=== PATIENT | male | born 1945 | race Caucasian/White ===

== ENCOUNTER → 2024-01-03 13:14 | Outpatient (REF) | payer MEDICARE, OTHER, SELFPAY | LOC: HWRAD 13:14 | PROVIDERS: ATTENDING PHYSICIAN Family Medicine | DX: R06.02 Shortness of breath (principal) | CPT/HCPCS: 71046 ==

== ENCOUNTER → 2024-01-05 07:48 | Outpatient (REF) | payer MEDICARE, OTHER, SELFPAY | LOC: DHCBC/DCA 07:48 | PROVIDERS: ATTENDING PHYSICIAN Internal Medicine Cardiovascular Disease; FAMILY PHYSICIAN Family Medicine | DX: R06.09 Other forms of dyspnea (principal); I25.10 Atherosclerotic heart disease of native coronary artery without angina pectoris; Z95.5 Presence of coronary angioplasty implant and graft; R06.02 Shortness of breath | CPT/HCPCS: 78452; 93017; A9500; J2785 ==

== ENCOUNTER 2024-01-18 06:03 | Day surgery (SDC) | payer MEDICARE, OTHER, SELFPAY ==
[2024-01-18] VITALS (11 sets, daily range): BP systolic 99–148; BP diastolic 69–90; BMI 28.0
[2024-01-18] MEDS: LOW STRENGTH ASPIRIN 81 MG PO (06:41)
[2024-01-18 06:48] LABS: Hematocrit 45.4 % (39.0-52.0); Hemoglobin 16.3 g/dL (13.0-18.0); Mean Corp Hgb Conc. 35.9 g/dL (33.0-37.0); Mean Corpuscular Hgb 32.4 pg (27.0-31.0); Mean Corpuscular Volume 90.3 fL (80.0-94.0); Mean Platelet Volume 10.6 fL (7.4-10.4); Platelet Count 245 10^3/uL (130-400); Red Blood Cell Count 5.03 10^6/uL (4.70-6.10); Red Cell Dist. Width 12.8 % (11.5-14.5); White Blood Cell Count 8.4 10^3/uL (4.8-10.8)
[2024-01-18 06:58] LABS: Blood Urea Nitrogen 17 mg/dl (9-20); Calcium 9.4 mg/dl (8.4-10.2); Carbon Dioxide 25 mmol/L (22-30); Chloride 102 mmol/L (98-107); Estimated Creatinine Clearance 60 ml/min; Glucose 142 mg/dl (70-99); Potassium 4.2 mmol/L (3.5-5.1); Sodium 141 mmol/L (135-145); eGFR > 60.00
--- NOTE | 2024-01-18 07:56 | ITS.CL.CATH ---
[facility] Director - Catheterization
Cardiac Catheterization
Procedure Report:
LEFT HEART CATHETERIZATION
Date of Procedure: January 18, 2024
Referring: Gene Huynh MD
PROCEDURES:
1. Left heart catheterization, coronary angiogram.
2. Ultrasound-guided access
INDICATION: Phililp is a 78-year-old gentleman with past medical history of hypertension, hyperlipidemia, coronary artery disease status post prior RCA PCI in 2020 who presents with 1 month history of exertional chest discomfort on 2 antianginal
medications and an abnormal stress test for a left heart catheterization to rule out obstructive CAD.
ACCESS: Right radial artery, 6 sheath, under ultrasound guidance
HEMODYNAMICS : (mmHg)
AO (s/d) : 145/90
LV (s/d) : 153/1
LVEDP : 17
CORONARY FINDINGS
DOMINANCE: Right
LEFT MAIN: The left main artery is a large-caliber vessel which gives rise to the left anterior descending artery and the left circumflex artery. There is minimal luminal irregularities
LEFT ANTERIOR DESCENDING: The left anterior descending artery is a medium to large caliber vessel which gives rise to 2 major diagonal branches as it courses to the anterior interventricular groove and wraps around the apex. There is a stable 80%
stenosis in the distal LAD towards the apex before it wraps around where it is small in caliber.
CIRCUMFLEX: The left circumflex artery is a medium caliber, nondominant vessel which gives off to a large caliber branching obtuse marginal branch. There is minimal luminal irregularities.
RIGHT CORONARY ARTERY: The right coronary artery has a anterior takeoff and is otherwise a large-caliber, dominant vessel which gives rise to the right posterior descending artery and the right posterolateral system. There is 50% focal in-stent
restenosis in the mid RCA which was IFR negative at 0.98. The posterolateral branch has very distal disease where it is very small in caliber.
HEMODYNAMIC ASSESSMENT OF THE MID RCA WITH A [employer] OMNI WIRE: The origin of the right coronary artery was cannulated with a 6 Fr AL 0.75 guide catheter. Intravenous heparin was administered and the ACT was followed during the procedure. Two
hundred micrograms of intracoronary nitroglycerin was given through the guide catheter. A [employer] Omni wire was advanced to the guide catheter tip and normalized just outside the guide catheter. The Omni wire was then carefully manipulated across
the stenosis in the mid RCA with the iFR above the ischemic threshold serially measuring 0.99, 0.98, 0.98. The Omni wire was then pulled back to the guide catheter where the Pd/Pa measured 1.0 confirming no baseline drift in pressure readings
SEDATION: 42 minutes of procedural sedation was utilized. An independent medical assistant dermatology was present to assist with and help manage the patient's level of consciousness and physiologic status.
RADIATION SUMMARY: Fluoro Time (min): 5 point, Dose (mGy): 425.6, DAP (Gy.cm2) : 25.5
Closure Device: Vascular band over right radial artery, 10 cc of air.
CONCLUSIONS
1. No obstructive coronary artery disease.
2. IFR -50% mid RCA in-stent restenosis.
3. Mildly elevated LVEDP at 17 mmHg.
RECOMMENDATIONS
1. Optimization of antianginal therapy. Of note patient tells us that he had significant leg cramps with 40 mg of Lipitor and therefore has been placed on 20 mg of daily Lipitor. He also only tolerated the Imdur for about 9 days and could not
tolerate the headaches related to this and therefore discontinued this. Currently he is only on Toprol XL 25 mg daily and therefore we will attempt adding low-dose amlodipine.
2. Aggressive management of cardiovascular risk factors.
3. Wean radial band per protocol.
4. Outpatient referral for cardiac rehab.
Copy to: Gene Huynh MD
Esme Young MD, [facility], [facility]
[2024-01-18 08:29] LABS: ACT-LR - POC 258 Seconds (116-155)
[2024-01-18] MEDS: NSS 500 IV (12:11)
== END 2024-01-18 13:00 | disposition home or self-care (01) ==
LOC: CATH 06:03
PROVIDERS: ATTENDING PHYSICIAN Internal Medicine Interventional Cardiology; FAMILY PHYSICIAN Family Medicine; OTHER PHYSICIAN Internal Medicine Cardiovascular Disease
DX: I25.10 Atherosclerotic heart disease of native coronary artery without angina pectoris (principal); Z95.5 Presence of coronary angioplasty implant and graft; E78.5 Hyperlipidemia, unspecified; I10 Essential (primary) hypertension; R94.39 Abnormal result of other cardiovascular function study; T82.855A Stenosis of coronary artery stent, initial encounter; Y83.2 Surgical operation with anastomosis, bypass or graft as the cause of abnormal reaction of the patient, or of later complication, without mention of misadventure at the time of the procedure; Z79.82 Long term (current) use of aspirin; Z79.899 Other long term (current) drug therapy
CPT/HCPCS: 99152; 99153; 93799; 80048; 85027; 85347; 93458; C1769; C1887; C1894; Q9967

== ENCOUNTER → 2024-03-15 09:05 | Outpatient (REF) | payer MEDICARE, OTHER, SELFPAY | LOC: HWRCS 09:05 | PROVIDERS: ATTENDING PHYSICIAN Nurse Practitioner; FAMILY PHYSICIAN Family Medicine | DX: R07.89 Other chest pain (principal) | CPT/HCPCS: 93306 ==

== ENCOUNTER 2024-03-22 02:23 | Emergency (ER) | payer MEDICARE, OTHER, SELFPAY ==
[2024-03-22 02:26] VITALS: BP 115/67
[2024-03-22 02:51] LABS: % Eosinophils 2.7 % (0-6); % Immature Granulocytes 0.4 % (0-0.5); % Lymphocytes 33.7 % (20.5-51.1); % Neutrophils 49.2 % (42.2-75.2); Absolute Basophils 0.1 10^3/uL (0-0.2); Absolute Eosinophils 0.2 10^3/uL (0-0.7); Absolute Lymphocytes 2.7 10^3/uL (1.2-3.4); Absolute Monocytes 1.1 10^3/uL (0.1-0.6); Hematocrit 41.9 % (39.0-52.0); Hemoglobin 15.2 g/dL (13.0-18.0); Mean Corp Hgb Conc. 36.3 g/dL (33.0-37.0); Mean Corpuscular Hgb 31.7 pg (27.0-31.0); Mean Corpuscular Volume 87.5 fL (80.0-94.0); Mean Platelet Volume 10.3 fL (7.4-10.4); Nucleated Red Blood Cells % 0 % (-); Platelet Count 243 10^3/uL (130-400); Red Blood Cell Count 4.79 10^6/uL (4.70-6.10); Red Cell Dist. Width 12.2 % (11.5-14.5); White Blood Cell Count 8.1 10^3/uL (4.8-10.8)
[2024-03-22 03:00] VITALS: BP 102/68
[2024-03-22 03:13] LABS: ALT (SGPT) 34 U/L (0-50); AST (SGOT) 34 U/L (17-59); Albumin 4.2 g/dl (3.5-5.0); Alkaline Phosphatase 85 U/L (38-126); Blood Urea Nitrogen 11 mg/dl (9-20); Calcium 8.9 mg/dl (8.4-10.2); Carbon Dioxide 23 mmol/L (22-30); Chloride 101 mmol/L (98-107); Estimated Creatinine Clearance 69 ml/min; Glucose 159 mg/dl (70-99); Sodium 135 mmol/L (135-145); Total Bilirubin 1.4 mg/dl (0.2-1.3); Total Protein 6.6 g/dl (6.3-8.2); eGFR > 60.00
[2024-03-22 03:27] LABS: Troponin I < 0.012 ng/ml
[2024-03-22 03:54] LABS: NT-proBNP < 20.0 pg/ml
[2024-03-22 04:00] VITALS: BP 107/67
[2024-03-22] MEDS: MAALOX 50 PO (04:30)
[2024-03-22 05:00] VITALS: BP 93/54
--- NOTE | 2024-03-22 05:07 | ED.GENMED ---
History of Present Illness
General
Chief Complaint: Chest Pain
Source: patient and previous hospital records (Cardiac catheterization January 2024 for evaluation of persistent chest pain. No obstructive CAD noted.)
Exam Limitations: none
Time Seen by Provider: 03/22/24 03:07
Nursing documentation reviewed up to this point in time: agreed with
History of Present Illness
History of Present Illness:
This is a 78-year-old gentleman who has history of hypertension, hyperlipidemia, CAD status post PTCA with stent to the RCA 2020. He notes chronic/frequent substernal chest pain, chronic dyspnea on exertion.
Follows with Dr. Huynh and underwent cardiac catheterization January 2024 that showed no obstructive coronary artery disease. There was note of a 50% focal in-stent restenosis of the mid RCA that was IFR negative.
Recommended optimization of antianginal therapy. Unfortunately patient intolerant to Imdur causing significant headaches. Intolerant to higher doses of Lipitor due to leg cramps, has been tolerating Lipitor 20 mg daily.
He is chronically maintained on Toprol XL 25 mg daily and amlodipine has been successfully added.
There was note of recommendation for outpatient cardiac rehab which patient has not initiated and admits that he had attempted to exercise at his local gym but notes significant dyspnea on exertion with any physical activity.
He had a routine follow-up with his bilingual patient support caseworker, Dr. Martinez yesterday morning and was feeling well. Upon returning home he had breakfast and then sat on the couch and then developed generalized upper chest pain that has persisted since 11 AM
yesterday. He did take a dose of Tylenol without relief.
He has had brief mild nausea but no vomiting, no back pain no neck pain, no palpitations, no dizziness or lightheadedness, no cough nor fever. He has had some mild shortness of breath, dyspnea on exertion most noted when he goes up or down steps.
No leg pain or swelling.
He arrives via EMS. He was given 2 sublingual nitroglycerin prehospital with no relief of pain. He took aspirin 325 mg at home.
Past History
Past History
ED Past Medical History: CAD, Cancer (Bladder), HTN, Hypercholesterolemia, DE (Non-STEMI April 2020) and Other (Diverticulitis, choledocholithiasis, Renal calculus, Bilirubin elevation chronic)
ED Past Surgical History: Cardiac (PTCA with stent right coronary artery April 2020), Cholecystectomy (Over 40 years ago), Orthopedic (Laminectomy 1979) and Urological (Bladder tumor removal 2016)
Social History
Tobacco: Former smoker
Alcohol: None
Personal:
Living: with family
Employment: Retired
Family History
Family History: CAD
Phy Exam
Physical Exam
Physical Exam:
GENERAL: 78-year-old gentleman appears his stated age, awake and alert, pleasant, appears in no acute distress.
EYE: anicteric
NECK: Supple, nontender, no meningismus, no significant adenopathy. No JVD.
ENT: oral mucosa is moist. No rhinorrhea.
CARDIAC: Regular rate and rhythm. no murmur. No rub. No palpable chest wall tenderness.
LUNGS: Clear breath sounds bilaterally, no acute respiratory distress, no wheezes/rales/rhonchi
ABDOMEN: Soft, nondistended, without focal tenderness, no r/g, no cvat. normoactive BS.
NEUROLOGICAL: Alert and oriented x3, no focal neuro deficits.
SKIN: Warm and dry, normal color, skin intact. No rash.
MUSCULOSKELETAL: No C/C/E. peripheral pulses are full and equal b/l. No palpable tenderness.
PSYCH: Normal and appropriate interaction.
Scores
Heart Score for Chest Pain Patients
STEMI patient?: No
History: Slightly or Non-Suspicious
ECG: Normal
Age: >/= 65 years
Risk Factors: >/= 3 Risk Factors or History of CAD
Troponin: </= Normal Limit
Heart Score for Chest Pain Patients: 4
Heart Score Risk: 20.3% MACE over next 6 weeks
Course
Orders/Labs/Results
Orders:
Orders
03/22/24 02:25
Electrocardiogram (*1) Urgent
Reason for Study: Chest Pain
Cardiac Monitoring- Treatment ONCE
EKG- Treatment ONCE
IV Insert/Care/Rem.- Treatment PRN
O2 Therapy [RESP] Urgent
Titrate/Wean O2 to maintain O2 sat greater than (%): 90
Special Instructions: Maintain sats >/=90%
Pulse Ox/spot Check [RESP] Urgent
Quantity: 1
Special Instructions: ON ROOM AIR
03/22/24 02:33
Comprehensive Metabolic Panel Urgent
NT-proBNP Urgent
Comment: ADD ON
Troponin I Urgent
03/22/24 02:34
Complete Blood Count/With Diff Urgent
03/22/24 03:18
Add On- LAB Urgent
Tests Added?: BNP
CR Chest - 2 Views Urgent
Comment:
Reason For Exam: upper chest pain x 1 day
03/22/24 03:55
Mag Hydrox/Al Hydrox/Simeth [Maalox] 30 ml Phenobarb/Hyoscy/Atropine/Scop [] 10 ml Viscous Lidocaine 2% [Xylocaine Viscous Cup] 10 ml PO NOW
03/22/24 04:15
Mag Hydrox/Al Hydrox/Simeth [Maalox] 30 ml .ROUTE .STK-MED ONE
Phenobarb/Hyoscy/Atropine/Scop [] 10 ml .ROUTE .STK-MED ONE
Viscous Lidocaine 2% [Xylocaine Viscous Cup] 15 ml .ROUTE .STK-MED ONE
03/22/24 05:11
Ketorolac [Toradol] 15 mg IV NOW STA
03/22/24 05:20
Troponin I Urgent
Abnormal Lab Results
03/22/24 03/22/24
02:33 02:34
MCH 31.7 H pg
(27.0-31.0)
Absolute Monos (auto) 1.1 H 10^3/uL
(0.1-0.6)
Monocytes % 13.0 H %
(1.7-9.3)
Glucose 159 H mg/dl
(70-99)
Total Bilirubin 1.4 H mg/dl
(0.2-1.3)
03/22/24 02:34
03/22/24 02:33
Vital Signs
Initial and Last Documented VS:
Initial Vital Signs
Temp Pulse Resp BP Pulse Ox
97.9 F 103 20 115/67 97
03/22/24 02:26 03/22/24 02:26 03/22/24 02:26 03/22/24 02:26 03/22/24 02:26
Last Documented Vital Signs
Temp Pulse Resp BP Pulse Ox
97.9 F 76 18 98/69 95
03/22/24 02:26 03/22/24 06:00 03/22/24 06:00 03/22/24 06:00 03/22/24 05:45
MDM/Problems Addressed
Differential Diagnosis Includes:
Concern for ACS, GERD, musculoskeletal chest pain, CHF.
EKG is unremarkable, similar and unchanged from previous.
Labs thus far unremarkable save for mildly elevated T. bili of 1.4. Similar to previous.
Troponin is pending.
With dyspnea on exertion although chronic, concern for potential CHF thus will add BNP, will check chest x-ray.
If unremarkable will trial GI cocktail for potential GERD.
Abdomen is soft without appreciable tenderness. Nothing to suggest gastritis nor intra-abdominal pathology.
Chronic conditions affecting care: HTN and CAD
*Radiology
Radiology exam reviewed: preliminary read by ED provider (Chest x-ray is unremarkable.)
*Pulse Oximetry
Patient hypoxic: no
*EKG
Interpreted by ED Provider?: Yes
Interpretation: normal
Comparison EKG: no changes (Unchanged from previous December 2021)
Rate: normal
Rhythm: sinus
[place]: left axis deviation
QRS Pattern: right bundle branch block
Ischemia: no ischemia
*Bin Worker Interpretation
Rate: normal
Interpretation: normal
Rhythm: sinus
*Critical Care Note
Total Time (30-74mins, 75-104mins- exclusive of procedures): Not Applicable
Update Note
Update Note:
05:15
Troponin is negative.
BNP is negative less than 20.
Chest x-ray is unremarkable.
Patient reports no relief of pain after GI cocktail. Overall continues to appear comfortable.
He has taken Tylenol at home without relief. Will trial a small IV dose of Toradol.
Although chest pain has been persistent since yesterday morning, negative troponin, ACS is unlikely but will repeat troponin for completeness sake.
06:20
Repeat troponin remains flat, negative.
Patient reports no significant improvement in left upper chest pain.
At this point unclear as to cause for pain, may be musculoskeletal in nature, neuropathic pain.
No evidence of ACS nor CHF. Nothing to suggest thromboembolism.
Admits that chest pain has been an ongoing issue for a number of months.
Will discharge to home with recommendation for prompt follow-up with his bilingual patient support caseworker.
Recommend trial of heating pad, perhaps topical lidocaine versus capsaicin.
Return precautions discussed.
ED Attending Note
-
Portions of this chart may have been created with voice recognition software.� Occasional wrong word or��sound alike� substitutions may have occurred due to the inherent limitations of voice recognition software.
Discharge Plan
Departure
Patient Disposition: Home (Routine Discharge)
Date of Disposition: 03/22/24
Time of Disposition: 06:20
Patient with high blood pressure during this ER visit?: No
Discharge Problem:
Nonspecific chest pain
Instructions: Chest Pain DCA Follow Up
Prescriptions:
No Action
alprazolam 0.5 MG tablet
0.25 mg PO BID
Patient Comments:
12/17/21: Per PDMP, last filled 10/15/21 #180 for 90 days
finasteride 5 MG tablet
5 mg PO HS
aspirin 81 MG tablet,delayed release (DR/EC)
81 mg PO DAILY
metoprolol succinate 50 MG tablet extended release 24 hr
25 mg PO DAILY
atorvastatin 40 mg Tablet
20 mg PO DAILY
psyllium 500 mg Capsule
0.52 g PO BID
acetaminophen [Tylenol Extra Strength] 500 mg Tablet
500 mg PO Q6H PRN (Reason: pain)
tamsulosin 0.4 mg Capsule
0.4 mg PO HS
Probiotic 3 billion cell Capsule
1 cell PO DAILY
amlodipine 10 mg Tablet
10 mg PO DAILY
Referrals:
Song Diaz DO [Family Provider] - Call in 1-3 days for appt
Interventions
Interventions:
*Risk Screen - Suicide Last Done: 03/22/24 02:26
*General Assessment Last Done: 03/22/24 02:26
*Neglect/Abuse Screening Last Done: 03/22/24 02:26
ED- Fall Risk Assessment Last Done: 03/22/24 03:38
*ED COVID-19 Vaccine History Last Done: 03/22/24 02:26
ED- Cardiac Assessment Last Done: 03/22/24 03:38
Discharge Date and Time
Print Language: GUAMANIAN
[2024-03-22] MEDS: TORADOL 15 MG IV (05:17)
[2024-03-22 06:00] VITALS: BP 98/69
[2024-03-22 06:07] LABS: Troponin I < 0.012 ng/ml
[2024-03-22 06:26] VITALS: BP 98/68
== END 2024-03-22 07:24 | disposition home or self-care (01) ==
LOC: EMR 02:23
PROVIDERS: EMERGENCY PHYSICIAN Emergency Medicine; FAMILY PHYSICIAN Family Medicine
DX: R07.89 Other chest pain (principal); I10 Essential (primary) hypertension; E78.00 Pure hypercholesterolemia, unspecified; I25.10 Atherosclerotic heart disease of native coronary artery without angina pectoris; I25.2 Old myocardial infarction; Z79.899 Other long term (current) drug therapy; Z82.49 Family history of ischemic heart disease and other diseases of the circulatory system; Z85.51 Personal history of malignant neoplasm of bladder; Z87.442 Personal history of urinary calculi; Z87.891 Personal history of nicotine dependence; Z90.49 Acquired absence of other specified parts of digestive tract; Z95.5 Presence of coronary angioplasty implant and graft
CPT/HCPCS: 99283; 96374; 71046; 80053; 83880; 84484; 85025; 93005

== ENCOUNTER → 2024-07-11 11:38 | Outpatient (REF) | payer MEDICARE, OTHER, SELFPAY | LOC: RAD 11:38 | PROVIDERS: ATTENDING PHYSICIAN Family Medicine; OTHER PHYSICIAN Urology | DX: C67.3 Malignant neoplasm of anterior wall of bladder (principal); R17 Unspecified jaundice; R10.84 Generalized abdominal pain; R63.0 Anorexia | CPT/HCPCS: 74178; Q9967 ==

== ENCOUNTER 2024-09-17 06:21 | Day surgery (SDC) | payer MEDICARE, OTHER, SELFPAY | END 2024-09-17 15:08 | disposition home or self-care (01) | LOC: GI 06:21 | PROVIDERS: ATTENDING PHYSICIAN Specialist | DX: Z12.11 Encounter for screening for malignant neoplasm of colon (principal); K59.00 Constipation, unspecified; K57.30 Diverticulosis of large intestine without perforation or abscess without bleeding; R10.84 Generalized abdominal pain; K22.89 Other specified disease of esophagus; K31.7 Polyp of stomach and duodenum; K31.89 Other diseases of stomach and duodenum; D12.2 Benign neoplasm of ascending colon; D12.3 Benign neoplasm of transverse colon; D12.4 Benign neoplasm of descending colon; K29.50 Unspecified chronic gastritis without bleeding; K31.A12 Gastric intestinal metaplasia without dysplasia, involving the body (corpus); B96.81 Helicobacter pylori [H. pylori] as the cause of diseases classified elsewhere; K20.90 Esophagitis, unspecified without bleeding; R11.0 Nausea; Z86.0101 Personal history of adenomatous and serrated colon polyps | CPT/HCPCS: 45385; 45380; 88305; 88342 ==

== ENCOUNTER → 2025-01-11 08:48 | Outpatient (REF) | payer MEDICARE, OTHER, SELFPAY | LOC: RAD 08:48 | PROVIDERS: ATTENDING PHYSICIAN Specialist; FAMILY PHYSICIAN Family Medicine | DX: R10.33 Periumbilical pain (principal) | CPT/HCPCS: 74250 ==

== ENCOUNTER → 2025-01-12 09:51 | Outpatient (REF) | payer MEDICARE, OTHER, SELFPAY | LOC: MRI 3T 09:51 | PROVIDERS: ATTENDING PHYSICIAN Specialist; FAMILY PHYSICIAN Family Medicine | DX: R10.11 Right upper quadrant pain (principal) | CPT/HCPCS: 74183; A9575 ==